=== PATIENT | male | born 1980 | race Caucasian/White ===

== ENCOUNTER 2020-06-14 17:13 | Emergency (ER) | payer OTHER ==
[~2020-06-14] VITALS: Ht 188 cm; Wt 111.1 kg
--- NOTE | 2020-06-14 19:11 | NUR ---
PT IS MEDICALLY CLEARED FOR BOOKING AND RELEASED UNDER THE CARE OF [employer] OFFICERS. PT IS IN STABLE CONDITION. PT IS AMBULATORY ON STEADY GAIT AND LEFT ON HANDCUFFS.
[2020-06-14 19:13] VITALS: BP 145/93
== END 2020-06-14 19:13 ==
LOC: ER 17:17
DX: R05 Cough (principal); R43.9 Unspecified disturbances of smell and taste; Z20.822 Contact with and (suspected) exposure to COVID-19; J45.909 Unspecified asthma, uncomplicated
CPT/HCPCS: 71045; 87426; 99284; C9803